=== PATIENT | male | born 1970 | race Caucasian/White ===

== ENCOUNTER 2016-11-03 23:12 | Inpatient (IN) | payer MEDICAID ==
[~2016-11-03] VITALS: Ht 180.3 cm; Wt 161.5 kg
[2016-11-03 23:51] LABS: BASOPHIL % 1.2 % (0-2); PLATELET COUNT 226 x10^3mcL (130-400)
[2016-11-03 23:52] LABS: RED CELL DISTRIBUTION WIDTH 14.7 % (11.5-14.5)
[2016-11-03 23:58] LABS: CARBON DIOXIDE 24.6 mmol/L (21-32); CHLORIDE SERUM 102 mmol/L (98-107); CREATININE SERUM 1.1 mg/dL (0.7-1.3); GFR1 > 60 mL/min; GLUCOSE SERUM 195 mg/dL (74-106); POTASSIUM SERUM 4.2 mmol/L (3.5-5.1); SODIUM SERUM 138 mmol/L (136-145)
[2016-11-04] VITALS (7 sets, daily range): BP systolic 140–165; BP diastolic 93–105
[2016-11-04 00:02] LABS: ALBUMIN 3.5 g/dL (3.4-5.0); ALKALINE PHOSPHATASE 69 U/L (46-116); TOTAL PROTEIN, SERUM 7.1 g/dL (6.4-8.2)
[2016-11-04 00:19] LABS: AST/SGOT 63 U/L (15-37)
[2016-11-04 00:30] LABS: ALT/SGPT 35 U/L (16-63)
[2016-11-04] MEDS ORDERED: LEVOTHYROXINE0.2 M2 PO (01:01)
[2016-11-04 02:15] LABS: T3 TOTAL 0.53 ng/mL
[2016-11-04 02:16] LABS: AMYLASE 42 U/L (25-115); FREE T4 0.34 ng/dL (0.76-1.46); LIPASE 223 IU/L (73-393); MAGNESIUM 2.1 mg/dL (1.8-2.4); PHOSPHOROUS 3.9 mg/dL (2.5-4.9)
[2016-11-04 02:25] LABS: FREE THYROXINE INDEX 0.4 ug/dL (1.4-4.5); T4(THYROXINE) 1.5 ug/dL (4.7-13.3)
[2016-11-04 02:26] LABS: CHOLESTEROL 256 mg/dL (<200); CHOLESTEROL/HDL RATIO 13.5; HDL CHOLESTEROL 19 mg/dL (40-60)
[2016-11-04 02:27] LABS: TRIGLYCERIDES 2042 mg/dL (<150)
[2016-11-04 09:28] LABS: BASOPHIL % 0.8 % (0-2); PLATELET COUNT 177 x10^3mcL (130-400)
[2016-11-04 09:32] LABS: RED CELL DISTRIBUTION WIDTH 15.1 % (11.5-14.5)
[2016-11-04 11:36] LABS: microscopic required? NO
[2016-11-04 11:37] LABS: CHLORIDE SERUM 103 mmol/L (98-107); CHOLESTEROL 165 mg/dL (<200); CREATININE SERUM 0.5 mg/dL (0.7-1.3); GFR1 > 60 mL/min; GLUCOSE SERUM 79 mg/dL (74-106); POTASSIUM SERUM 3.4 mmol/L (3.5-5.1); SODIUM SERUM 139 mmol/L (136-145); TRIGLYCERIDES 76 mg/dL (<150)
[2016-11-04 11:39] LABS: CHOLESTEROL/HDL RATIO 1.7; HDL CHOLESTEROL 96 mg/dL (40-60)
[2016-11-04 11:46] LABS: urine erythrocyte NEGATIVE (NEGATIVE)
[2016-11-04 12:03] LABS: AMPHETAMINE QUAL UR NONE DETECTED (NEG <=1000)
[2016-11-04 12:20] LABS: T3 TOTAL 0.56 ng/mL
[2016-11-04 12:27] LABS: FREE T4 0.38 ng/dL (0.76-1.46)
[2016-11-04 12:36] LABS: FREE THYROXINE INDEX 0.8 ug/dL (1.4-4.5); T4(THYROXINE) 2.5 ug/dL (4.7-13.3)
[2016-11-05 06:05] VITALS: BP 131/88
[2016-11-05 09:45] VITALS: BP 134/82
[2016-11-05 13:53] VITALS: BP 142/83
[2016-11-05 17:54] VITALS: BP 146/98
[2016-11-05 21:20] VITALS: BP 153/93
[2016-11-06 01:03] VITALS: Ht 180.3 cm; Wt 161.5 kg
[2016-11-06 05:36] VITALS: BP 125/92
[2016-11-06 07:03] LABS: CALCIUM 8.4 mg/dL (8.5-10.1); CARBON DIOXIDE 28.9 mmol/L (21-32); CHLORIDE SERUM 103 mmol/L (98-107); CREATININE SERUM 1.2 mg/dL (0.7-1.3); GFR1 > 60 mL/min; GLUCOSE SERUM 120 mg/dL (74-106); PHOSPHOROUS 3.9 mg/dL (2.5-4.9); POTASSIUM SERUM 3.9 mmol/L (3.5-5.1); SODIUM SERUM 138 mmol/L (136-145)
[2016-11-06 07:32] LABS: BASOPHIL % 0.5 % (0-2); PLATELET COUNT 148 x10^3mcL (130-400); RED CELL DISTRIBUTION WIDTH 15.6 % (11.5-14.5)
[2016-11-06 08:30] VITALS: BP 136/77
[2016-11-06 17:55] VITALS: BP 136/85
[2016-11-06 21:40] VITALS: BP 133/77
[2016-11-07 06:00] VITALS: BP 128/83
[2016-11-07 06:02] LABS: CALCIUM 8.8 mg/dL (8.5-10.1); CARBON DIOXIDE 29.9 mmol/L (21-32); CHLORIDE SERUM 101 mmol/L (98-107); CREATININE SERUM 1.2 mg/dL (0.7-1.3); GFR1 > 60 mL/min; GLUCOSE SERUM 108 mg/dL (74-106); MAGNESIUM 2.2 mg/dL (1.8-2.4); PHOSPHOROUS 4.3 mg/dL (2.5-4.9); POTASSIUM SERUM 4.6 mmol/L (3.5-5.1); SODIUM SERUM 140 mmol/L (136-145)
[2016-11-07 08:44] VITALS: BP 145/95
[2016-11-07 16:57] VITALS: BP 142/95
[2016-11-07 21:32] VITALS: BP 154/96
[2016-11-08 06:02] VITALS: BP 143/82
[2016-11-08 06:59] LABS: BASOPHIL % 0.6 % (0-2); PLATELET COUNT 158 x10^3mcL (130-400)
[2016-11-08 07:03] LABS: RED CELL DISTRIBUTION WIDTH 15.5 % (11.5-14.5)
[2016-11-08 10:13] VITALS: BP 147/82
[2016-11-08] MEDS ORDERED: CLEOCIN HCL300 MG PO (14:23)
[2016-11-08] MEDS ORDERED: LAC PO (14:23)
[2016-11-08 14:32] VITALS: BP 147/82
[2016-11-08] MEDS ORDERED: HCTZ/LISINOPRIL1 TA2 PO (17:58)
[2016-11-08 18:19] VITALS: BP 137/86
== END 2016-11-08 19:01 | disposition home or self-care (01) | DRG 383 ==
LOC: ED 23:12 → MU 11-04 00:40 → DU 11-04 00:40 → MU 11-04 07:40
PROVIDERS: Emergency Medicine; Family Medicine; ADMIT Family Medicine
DX: L03.116 Cellulitis of left lower limb (principal); N17.0 Acute kidney failure with tubular necrosis; Z68.43 Body mass index [BMI] 50.0-59.9, adult; I42.9 Cardiomyopathy, unspecified; E83.51 Hypocalcemia; E66.01 Morbid (severe) obesity due to excess calories; E87.6 Hypokalemia; K21.9 Gastro-esophageal reflux disease without esophagitis; I10 Essential (primary) hypertension; E03.9 Hypothyroidism, unspecified; F14.21 Cocaine dependence, in remission; F15.21 Other stimulant dependence, in remission; F12.21 Cannabis dependence, in remission; I11.9 Hypertensive heart disease without heart failure
CPT/HCPCS: 80307; 83880; 84439; 90658; 90732; J1644; J1940; J1956; J2270; J3490; J7030; J7050; Q0092

== ENCOUNTER → 2016-12-12 | Outpatient (CLI) | payer MEDICAID ==
[~2016-12-12] MED LIST: CLEOCIN HCL300 MG PO; HCTZ/LISINOPRIL1 TA2 PO; LAC PO; LEVOTHYROXINE0.2 M2 PO
== END | disposition home or self-care (01) ==
LOC: RD 08:16
DX: M25.572 Pain in left ankle and joints of left foot (principal)
CPT/HCPCS: Q0092